=== PATIENT | female | born 1985 | race Caucasian/White ===

== ENCOUNTER 2016-08-23 21:42 | Emergency (ER) | payer SELFPAY ==
[~2016-08-23 21:42] MED LIST: COLACE-DPS100 MG PO; FEOSOL-DPS325 MG PO; HUMA SQ; HUMALOG; LANTUS100 UNITS/ SQ; MOTRIN-DPS800 MG PO; NOVOLIN R,100 UNITS/ SQ; PERCOCET 5 DPS1 TAB PO; PRENATAL VIT1 TAB PO; PROCARDIA XL30 MG PO; PROTONIX40 MG PO; TYLENOL EXTRA500 MG PO
--- NOTE | 2016-09-01 07:32 | ER ---
ADMIT: 08/23/2016 RM/LOC: ER [facility] MR#: [id number] [facility] [address] [place], [place] [address] KATJA ESCOBEDO [address] [address] Emergency Room Report SEX: F AGE: 30 : 1985 DATE: 08/23/2016 HISTORY OF PRESENT ILLNESS: The patient is a 30-year-old female, presents to emergency room complaining of abdominal pain. She points to the right upper quadrant. She states she was drinking today. She had two large beers. She is denying any nausea, vomiting, or diarrhea. REVIEW OF SYSTEMS: Negative. PAST MEDICAL HISTORY: Diabetes type 1. Having being using her insulin as prescribed. We looked at the prior records of admission to the hospital, and in the past, she has been in the same situation, where she has not been taking care of herself properly and has not been using her insulin. Blood sugar at times higher than 300. She has had a cholecystectomy, . She is supposed to be taking insulin, she states is NovoLog. ALLERGIES: SHE HAS NO ALLERGIES. SOCIAL HISTORY: She smokes half a pack. PHYSICAL EXAMINATION: VITAL SIGNS: Blood pressure 144/87, heart rate 90, respirations 20, temp is 97.9, O2 sats 96%. GENERAL: Alert, although a little bit anxious at the time of admission to the emergency room. HEENT: Normal inspection. NECK: Supple. RESPIRATIONS: No distress. CARDIOVASCULAR: Regular in rate and rhythm. ABDOMEN: Tenderness in the right upper quadrant. BACK: Normal inspection. SKIN: Good color. EXTREMITIES: Well perfused. No edema. NEURO: Mood and affect are depressed, oriented x4. LABORATORY DATA: CBC; 10.8 white count. Serum ketones negative. Osmolality 330 and elevated, pH is decreased at 7.3. Her chemistry; CO2 of 21 with a glucose of 268, creatinine is 0.4. AST 79, alkaline phosphatase 163. Urine is negative. Urine shows leukocytes 1+ and glucose positive, ADMIT: 08/23/2016 RM/LOC: ER [facility] MR#: [id number] [address] KATJA ESCOBEDO [address] [place] [address] Emergency Room Report SEX: F AGE: 30 : 1985 ketones negative. CLINICAL IMPRESSION: 1. Uncontrolled diabetes mellitus. 2. Alcohol intake with some dehydration. The patient received [address] Evans consulted for patient disposition. She was able to drink some Powerade. No vomiting or dry heaving at this point. She has been given a prescription of NovoLog and encouraged to be more faithful about her care and her medication use. Senior Specialist referral was given for patient to be able to make sure that she gets her medication. Encouraged to follow up with [facility] for further evaluation and care. YAIR Santana / Akash Evans MD / isaiah JOB #: [id number] CC: Aaksh Evans MD, Attending Physician Ronan Daugherty MD, Family Physician
== END 2016-08-24 00:14 | disposition home or self-care (01) ==
LOC: ER 21:42
DX: E86.0 Dehydration (principal); E10.9 Type 1 diabetes mellitus without complications; J45.909 Unspecified asthma, uncomplicated; Z90.49 Acquired absence of other specified parts of digestive tract

== ENCOUNTER 2016-10-13 19:50 | Emergency (ER) | payer SELFPAY ==
--- NOTE | 2016-10-14 19:20 | ER ---
ADMIT: 10/13/2016 RM/LOC: ER [facility] MR#: [id number] [facility] [address] [place], [place] [address] PHILLIPS JATINDERAUSTENKATJA A [address] [place] [address] Emergency Room Report SEX: F AGE: 31 : 1985 DATE: 10/13/2016 Patient is a 31-year-old 10-week female, status post cholecystectomy, complaining of right upper quadrant pain radiating to back, associated with nausea, made worse with food. She is also experiencing some loose stools. The patient is a poorly controlled diabetic. Blood sugar 298 prior to arrival. Exam remarkable for nontoxic, afebrile, female, tender to palpation in the epigastrium, right upper quadrant. GI cocktail relieved dyspepsia. Urinalysis greater than 1000 glucose, otherwise negative UA. Strongly encouraged sliding scale, which she does comply with. Liquid antacids 15 mL q.i.d. p.r.n. Avoid high-fat, high-protein foods. Follow up [facility] as scheduled. Casimiro Jeffers MD/ isaiah JOB #: [id number] CC: Casimiro Jeffers MD, Attending Physician Noemy Bacon, Family Physician . [facility]
== END 2016-10-13 21:30 | disposition home or self-care (01) ==
LOC: ER 19:50
DX: O99.611 Diseases of the digestive system complicating pregnancy, first trimester (principal); K29.70 Gastritis, unspecified, without bleeding; O24.311 Unspecified pre-existing diabetes mellitus in pregnancy, first trimester; E11.9 Type 2 diabetes mellitus without complications; O99.511 Diseases of the respiratory system complicating pregnancy, first trimester; J45.909 Unspecified asthma, uncomplicated; Z3A.10 10 weeks gestation of pregnancy; Z90.49 Acquired absence of other specified parts of digestive tract; Z98.890 Other specified postprocedural states; Z79.4 Long term (current) use of insulin; Z79.899 Other long term (current) drug therapy